=== PATIENT | female | born 1965 | race Caucasian/White ===

== ENCOUNTER 2018-08-27 09:37 | Day surgery (SDC) | payer MEDICARE ==
--- NOTE | 2018-08-27 06:51 | History and Physical - Ferro ---
CHIEF COMPLAINT/HISTORY OF CHIEF COMPLAINT: This patient presents with a history of an intractable lumbar radiculopathy. Due to the failure of therapy, a spinal stimulator trial was conducted on 07/29/18 with 75-80% pain control. Due to the failure of all therapies and the success of the trial, she presents today for implantation of a permanent system. PAST MEDICAL HISTORY: Chronic bronchitis, sleep apnea, reflux esophagitis, and degenerative arthritis. PAST SURGICAL HISTORY: Lumbar spinal surgery and knee surgery. MEDICATIONS ON ADMISSION: List to be provided. ALLERGIES: List to be provided. FAMILY/PSYCHOSOCIAL HISTORY: Social history - Social alcohol and caffeine. Family history - Thyroid disease, diabetes, hypertension and cancer. SYSTEMS REVIEW: The patient is appropriate in no acute distress. The remainder of the systems review is positive for glasses, headaches, depression, and difficulty sleeping. PHYSICAL EXAMINATION: Height is 5'5", weight is 250. No vital signs available. HEENT: Within normal limits. LUNGS: Clear. HEART: Regular rate and rhythm. ABDOMEN: Nontender. MUSCULOSKELETAL: Examination of the musculoskeletal system shows diffuse tenderness throughout the lumbar spine. Range of motion does produce pain throughout the low back and extending into the lower extremities. A laminectomy scar is identified mid to low lumbar. Motor and sensory field evaluation shows sensory and motor weakness bilateral lower extremities. Ambulation - No assistive device utilized. NEUROLOGIC: Cranial nerves are intact. IMPRESSION: POST LUMBAR LAMINECTOMY SYNDROME, ICD-10 CODE M96.1 WITH RADICULOPATHY, ICD-10 CODE M54.16 AND M54.17. PLAN: Due to the failure of conservative therapy, the patient is here for implantation of a permanent spinal cord stimulator. The procedure will be considered outpatient, although an overnight stay will be evaluated. JOB NUMBER: [id number] [facility]
[~2018-08-27 09:37] MED LIST: ACETAMINOPHEN 1,000 MG/100 ML BTL IV ONE; CEFAZOLIN 2 Gram 2 GM/50 ML BAG IVPB ONE; FAMOTIDINE 20MG TABLET PO ONE; MECLIZINE 25 MG TABLET PO ONE; METOCLOPRAMIDE 10 MG TABLET PO ONE
[2018-08-27] MEDS ORDERED: PROPOFOL 10 MG/ML VIAL IV ONE (09:38)
[2018-08-27] MEDS ORDERED: CEFAZOLIN 1G VIAL IM ONE (09:38)
[2018-08-27] MEDS ORDERED: KETAMINE HCL 100MG/1ML VIAL INJ ONE ×2 (09:38)
[2018-08-27] MEDS ORDERED: MIDAZOLAM HCL 2MG/2ML VIAL IV ONE (09:38)
[2018-08-27] MEDS ORDERED: BUPIVACAINE 0.5% W/EPI MPF 30 ML VIAL IVP ONE (09:38)
[2018-08-27] MEDS ORDERED: LIDOCAINE 1% W/EPI 1:200,000 MPF 30ML SQ ONE (09:38)
[2018-08-27] MEDS ORDERED: LIDOCAINE 2% MDV (20MG/ML) 20ML VIAL IV ONE (09:38)
[2018-08-27] MEDS ORDERED: FENTANYL PF 100MCG/2ML VIAL IV ONE (09:38)
[2018-08-27] MEDS ORDERED: HYDROMORPHONE HCL 2 MG/ML VIAL IV ONE (09:38)
--- NOTE | 2018-08-28 16:42 | Operative Note - Ferro ---
DATE OF SURGERY: 08/27/18 PREOPERATIVE DIAGNOSES: POST LUMBAR LAMINECTOMY SYNDROME, ICD-10 CODE = M96.1 WITH RADICULOPATHY, ICD- 10 CODE = M54.16 AND M54.17. OPERATION: 1. FLUOROSCOPICALLY-GUIDED EPIDURAL ACCESS LEFT T12/L1, PLACEMENT OF SPINAL CORD STIMULATOR LEAD 1, A [employer] INFINION 16 WITH 16 ELECTRODES POSITIONED LEFT T7. 2. 3. FLUOROSCOPICALLY-GUIDED EPIDURAL ACCESS LEFT L1/2, PLACEMENT OF SPINAL CORD STIMULATOR LEAD 2, A [employer] INFINION 16 WITH 16 ELECTRODES POSITIONED RIGHT T7. 3. COMPLEX PROGRAMMING LEAD 1 OVER 20 MINUTES FOLLOWED BY COMPLEX PROGRAMMING OF LEAD 2 OVER 20 MINUTES. 4. INCISION, SUBCUTANEOUS DISSECTION, AND ANCHORING OF LEAD 1 AND LEAD 2 TO SUPRASPINOUS FASCIA USING A [employer] LOCKING ANCHOR. 5. INCISION, SUBCUTANEOUS DISSECTION, AND CREATION OF SUBCUTANEOUS POUCH, RIGHT POSTERIOR GLUTEAL MARGIN FOR PLACEMENT OF GENERATOR IDENTIFIED [employer] PROGRAMMABLE RECHARGEABLE. 6. TUNNELING BETWEEN POUCHES. PLACEMENT OF EXTERNAL PORTION OF LEAD 1 AND LEAD 2 INTO GENERATOR POUCH. EACH LEAD INTERFACED TO GENERATOR. 7. PLACEMENT OF GENERATOR INTO POUCH. PLACEMENT OF LEADS INTO POUCH. CLOSURE OF BOTH INCISIONS USING STRATAFIX SUTURE 2-0 FASCIA, 3-0 SKIN. DERMABOND CLOSURE. 8. COMPLEX RECOVERY ROOM PROGRAMMING INTERNAL GENERATOR HOME USE, TWO STIMULATORS, 20 MINUTES. SURGEON: JAMES DUDLEY D.O. ANESTHESIA: LOCAL SEDATION. ANESTHESIA PROVIDER: LESLIE TAYLOR CRNA. INDICATION: This patient presents with a history of intractable post laminectomy radiculopathy. Due to the failure of therapy, a spinal cord stimulator trial was conducted in the office with 75 to 85% pain control. Due to the failure of all therapies and the success of the trial, the patient presents today for implantation of a permanent system. PROCEDURE: Intravenous line, vital sign monitoring, IV sedation, prepped and draped sterile technique. Under imaging, the epidural interspace at 08/28 and 09/29 were marked infiltrated. Using two standard needles with introducers, the space was accessed. There were a number of different penetration points used from 07/08, 08/09, and 08/28 bilateral unsuccessfully. The 08/28 and 09/29 were successful. Once the epidural space was accessed, spinal cord stimulator lead 1 , a [employer] Infinion 16 with 16 electrodes was advanced left of midline at T7. With the epidural access at the lower level 1/2, spinal cord stimulator lead 2, also a [employer] Infinion 16 with 16 electrodes was positioned right of midline at T7. Complex programming of lead 1 over 20 minutes followed by complex programming of lead 2 over 20 minutes resulted in complete patterns of stimulation across the back and into the legs; patient indicating we had all of the areas of the pain. She was given the option to implant, continue to program, or remove; she opted to implant. She was resedated. The skin above and below the needles was infiltrated, incision made, and subcutaneous dissection was conducted to the supraspinous fascia. The needles were removed then each lead was anchored to the supraspinous fascia with a [employer] Locking Yale. At the right posterior gluteal margin, site picked by the patient for the generator, skin infiltrated, incision made, and subcutaneous dissection was conducted to form a pouch of suitable size and depth for the generator, a [employer] Programmable Rechargeable WaveWriter. A tunneling tool was used to carry the leads into the generator pouch and each lead was interfaced to the generator. Antibiotic irrigation and Bovie for hemostasis. The generator was placed into the pouch, the leads were placed into their pouch, and then both incisions were closed using STRATAFIX suture 2-0 fascia, 3-0 skin. Dermabond closure. She was transported to the Recovery Room stable. No side-effects from the procedure or the sedation. When fully awake and alert, complex programming performed over 20 minutes re- establishing stimulation and pain control to all of the appropriate areas. She was instructed on the use of the system, provided with information, error messaging, and then prepared for discharge. DISCHARGE INSTRUCTIONS: 1. Sites remain clean and dry. No showering or bathing in any way although the Dermabond dressing will allow showering, she should not sit in water. No tubs. 2. Standard medications resumed including the antibiotic Levaquin. She will take 500 mg once a day for 14 days. 3. The office will contact the patient in the next 2-3 days to set up an appointment in 7-10 days to evaluate the sites. Until then, her activities should stay low; limit bend, lift, push, pull. All other instructions provided, numbers to contact, problems given, she was then discharged. cc: Belén Hannah N.P. JOB NUMBER: [id number] MTDD
--- NOTE | 2018-08-29 19:36 | RADIOLOGY REPORT ---
EXAM: SPINE, 1 VIEW HISTORY: PAIN PUMP PLACEMENT. TECHNIQUE: Single portable AP view of the lumbar spine was performed. FINDINGS: The stimulator lead tips are at the T6-7 level. IMPRESSION: STIMULATOR LEAD TIPS ARE AT THE T6-7 LEVEL. JOB NUMBER: [id number] MTDD
== END 2018-08-27 14:26 | disposition home or self-care (01) ==
LOC: SUR 09:37
PROVIDERS: ATTEND Pain Medicine Interventional Pain Medicine
DX: M96.1 Postlaminectomy syndrome, not elsewhere classified (principal); M54.16 Radiculopathy, lumbar region; M54.17 Radiculopathy, lumbosacral region; E03.9 Hypothyroidism, unspecified; G47.33 Obstructive sleep apnea (adult) (pediatric); E66.9 Obesity, unspecified
CPT/HCPCS: 72020; 95972; C1820; C1883; J0690; J3490

== ENCOUNTER 2019-07-20 07:22 | Day surgery (SDC) | payer MEDICARE ==
--- NOTE | 2019-07-13 06:50 | History and Physical - Ferro ---
CHIEF COMPLAINT/HISTORY OF CHIEF COMPLAINT: This patient presents with a history of a post lumbar laminectomy radiculopathy. Due to the failure of therapy a spinal cord stimulator trial was conducted with implant of the procedure and device noted. Although initially she achieved good pain control it has since failed to adequately and successfully control her pain. She is here for an implanted spinal catheter infusion trial of Hydromorphone to determine if the implantation of a permanent system can be of any value in pain control. PAST MEDICAL HISTORY: Chronic bronchitis, sleep apnea, reflux esophagitis, and degenerative arthritis. PAST SURGICAL HISTORY: Lumbar spinal surgery and knee surgery. MEDICATIONS ON ADMISSION: List to be provided. ALLERGIES: List to be provided. FAMILY/PSYCHOSOCIAL HISTORY: Social history - Social alcohol and caffeine. Family history - Thyroid disease, diabetes, hypertension, and cancer. SYSTEMS REVIEW: The patient is appropriate in no acute distress. The remainder of the systems review is positive for glasses, headaches, depression, and difficulty sleeping. PHYSICAL EXAMINATION: Height is 5'5", weight is 250. No vital signs. HEENT: Within normal limits. LUNGS: Clear. HEART: Rapid and regular. ABDOMEN: Nontender. MUSCULOSKELETAL: Examination of the musculoskeletal system shows diffuse tenderness lumbar spine. Range of motion does seem to produce pain across the back into the legs somewhat more right than left. There are mild motor and sensory abnormalities, right greater than left. Ambulation - Assistive device utilized. NEUROLOGIC: Cranial nerves are intact. IMPRESSION: POST LUMBAR LAMINECTOMY SYNDROME, ICD-10 CODE M96.1 WITH RADICULOPATHY, ICD-10 CODE M54.16 AND M54.17. PLAN: The patient is here for an implanted catheter infusion trial of Hydromorphone to determine if the implantation of a permanent system can be of any value in pain control. The procedure will be an overnight stay. An epidural blood patch will be performed which will require laying flat for four and slowly elevating for one. All of the potential risks, side effects, and complications have been carefully reviewed and discussed. JOB NUMBER: [id number] [facility]
--- NOTE | 2019-07-19 13:12 | History and Physical - Ferro ---
CHIEF COMPLAINT/HISTORY OF CHIEF COMPLAINT: This patient presents with a history of a post lumbar laminectomy radiculopathy. Due to the failure of therapies including a spinal cord stimulator implant the patient presents today for implanted spinal catheter infusion trial with Hydromorphone to determine if the implantation of a permanent system can be of any value in pain control. PAST MEDICAL HISTORY: Chronic bronchitis, sleep apnea, reflux esophagitis, and degenerative arthritis. PAST SURGICAL HISTORY: Lumbar spinal surgery and knee surgery. MEDICATIONS ON ADMISSION: List to be provided. No blood thinners. ALLERGIES: List to be provided. FAMILY/PSYCHOSOCIAL HISTORY: Social history - Social alcohol and caffeine. Family history - Thyroid disease, diabetes, hypertension and cancer. SYSTEMS REVIEW: The patient is appropriate in no acute distress. The remainder of the systems review is positive for glasses, headaches, depression, and difficulty sleeping. PHYSICAL EXAMINATION: Height is 5'5", weight is 250. No vital signs. HEENT: Within normal limits. LUNGS: Clear. HEART: Rapid and regular. ABDOMEN: Nontender. MUSCULOSKELETAL: Examination of the musculoskeletal system shows diffuse tenderness throughout the lumbar spine. Range of motion produces pain into both legs somewhat more right than left. There are mild motor and sensory abnormalities in both legs, right greater than left. Ambulation - No assistive device utilized. NEUROLOGIC: Cranial nerves are intact. IMPRESSION: POST LUMBAR LAMINECTOMY SYNDROME, ICD-10 CODE M96.1 WITH RADICULOPATHY, ICD-10 CODE M54.16 AND M54.17. PLAN: The patient is here for an implanted spinal catheter infusion trial of Hydromorphone to determine if the implantation of a permanent spinal infusion device would be of any value in superintendent container terminal pain control. The procedure will involve the incision and placement of spinal catheter. As a prophylactic measure against spinal headache an epidural blood patchy will be performed which requires her to lay flat for four, slowly elevated for one. She will stay overnight for observation and be discharged in the morning. The potential risks, side effects, and complications have all been reviewed and discussed in detail, information through the trimmer helper was provided and discussed, she was put in contact with a clinical administrative representative from [employer] who also answered her questions. JOB NUMBER: [id number] MTDD
[~2019-07-20 07:22] MED LIST changes: -ACETAMINOPHEN 1,000 MG/100 ML BTL IV ONE; +ACETAMINOPHEN 1,000 MG/100 ML BTL IVPB ONE; +HYDROMORPHONE PF 2MG/ML AMP 0.008 MG in 0.9 % SODIUM CHLORIDE 10ML VIA 0.996 ML IV ONE; +HYDROMORPHONE PF 2MG/ML AMP 8 MG in 0.9 % SODIUM CHLORIDE 500ML 496 ML IV ONE; -METOCLOPRAMIDE 10 MG TABLET PO ONE
[2019-07-20] MEDS ORDERED: PROPOFOL 10 MG/ML VIAL IV ONE (07:23)
[2019-07-20] MEDS ORDERED: MIDAZOLAM HCL 2MG/2ML VIAL IV ONE (07:23)
[2019-07-20] MEDS ORDERED: FENTANYL PF 100MCG/2ML VIAL IV ONE (07:23)
[2019-07-20] MEDS ORDERED: *PACU ONLY* KETAMINE HCL 10 MG/ML (20ML) VIAL IV ONE (07:23)
[2019-07-20] MEDS ORDERED: HYDROMORPHONE HCL 2 MG/ML VIAL IV ONE (07:23)
[2019-07-20] MEDS ORDERED: LIDOCAINE 2% MDV (20MG/ML) 20ML VIAL IV ONE (07:23)
[2019-07-20] MEDS ORDERED: MECLIZINE 25 MG TABLET PO ONE (07:42)
[2019-07-20] MEDS ORDERED: FAMOTIDINE 20MG TABLET PO ONE (07:42)
[2019-07-20] MEDS ORDERED: RINGERS SOLUTION,LACTATED 1,000 ML IV ONE (07:45)
[2019-07-20] MEDS ORDERED: ACETAMINOPHEN 1,000 MG/100 ML BTL IVPB ONE (07:46)
[2019-07-20] MEDS ORDERED: CEFAZOLIN 1 Gram 1 GM/50 ML BAG IVPB ONE (07:47)
[2019-07-20] MEDS ORDERED: CEFAZOLIN 2 Gram 2 GM/50 ML BAG IVPB SCH (08:00)
[2019-07-20] MEDS ORDERED: LIDOCAINE 1% W/EPI 1:100,000 MDV 20 ML VIAL SQ ONE (09:43)
[2019-07-20] MEDS ORDERED: CEFAZOLIN 1G VIAL IR ONE (09:44)
[2019-07-20] MEDS ORDERED: BUPIVACAINE 0.5% W/EPI MPF 30 ML VIAL SQ ONE (09:44)
[2019-07-20] MEDS ORDERED: CAFFEINE/SODIUM BENZOATE 250MG 500 MG in 0.9 % SODIUM CHLORIDE 100ML 100 ML IVPB ONE ×2 (10:22→10:23)
--- NOTE | 2019-07-20 10:51 | Operative Note - Ferro ---
DATE OF SURGERY: 07/20/2019 PREOPERATIVE DIAGNOSIS: LUMBAR RADICULOPATHY, ICD-10 CODE M54.16 AND M54.17, POST LAMINECTOMY SYNDROME, ICD-10 CODE M96.1. OPERATION: 1. FLUOROSCOPICALLY GUIDED ACCESS SPINAL SPACE AT L3-L4, PLACEMENT OF THIN WALLED SPINAL CATHETER T11-T12. 2. DIAGNOSTIC MYELOGRAPHY WITH RADIOLOGIC SUPERVISION AND INTERPRETATION. 3. SPINAL OPIOID BOLUS HYDROMORPHONE 0.006 MG SPINAL SPACE. 4. INCISION, SUBCUTANEOUS DISSECTION, AND ANCHORING OF SPINAL CATHETER TO THE SUPRASPINOUS FASCIA WITH A [employer] ANCHOR AND NONABSORBABLE SUTURE. 5. INCISION, SUBCUTANEOUS DISSECTION, CREATION OF SUBCUTANEOUS POUCH AT LEFT POSTERIOR GLUTEAL MARGIN. 6. TUNNELLING BETWEEN MIDLINE POUCH INTO POSTERIOR POUCH EXTENDING SPINAL CATHETER INTO POUCH. 7. INTERFACE SPINAL CATHETER INDWELLING WITH SECOND CATHETER COMPONENT BY WAY OF A CONNECTOR. 8. TUNNELLING SECONDARY CATHETER 6 CM SUPERIOR SUBCUTANEOUS FROM POSTERIOR GLUTEAL POUCH EXITING SKIN, INTERFACE EXTERNAL CATHETER TO EXTERNAL PUMP SET TO DELIVER HYDROMORPHONE AT 0.16 MG A DAY. 9. CLOSURE OF MIDLINE INCISION USING VICRYL FOR FASCIA AND ANGEL FOR SKIN, CLOSURE OF LEFT POSTERIOR GLUTEAL POUCH USING RUNNING NYLON. 10. DRESSINGS PLACED, SECURING CATHETER ALL CONNECT UNDER STERILE DRESSING. 11. NO EPIDURAL BLOOD PATCH BECAUSE OF MULTIPLE LEVEL SPINAL SURGERY. PATIENT TRANSPORTED TO THE RECOVERY ROOM STABLE FLAT. SURGEON: Ren Hassan D.O. ANESTHESIA: Local sedation. ANESTHESIA PROVIDER: Dallas Boogie CRNA INDICATION: This patient presents with a history of multiple level fusion lumbar spine and chronic intractable pain which is back and leg. Due to the failure of therapy, she is here for an implanted spinal catheter infusion trial using Hydromorphone to determine if the implantation of a permanent system can be of any value in pain control. PROCEDURE: Intravenous line, vital sign monitoring, IV sedation. Prepped and draped, sterile technique, patient positioned prone. Sterile prep, sterile technique. The spinal interspace at L2-L3 could not be identified because of extensive arthritic change. At L3-L4 level junction with the multiple level fusion, and laminectomy, infiltrated with local, a 20-gauge spinal needle, long axis paramedian approach using AP and lateral imaging was placed into the spinal space. The needle was accessed into the spinal space on lateral imaging. With CSF flow a thin walled spinal catheter was advanced and positioned midline under imaging at T11-T12. There was no response on the part of the patient, no unusual pain patterns or response from the placement. Diagnostic myelography was performed, the flow characteristics were appropriate for the space, confirming catheter position straight and linear. A bolus of Hydromorphone at 0.06 mg was given into the spinal space. The catheter was clamped to stop CSF leak. The skin above and below the needle was infiltrated and subcutaneous dissection was conducted to the supraspinous fascia. The needle was removed and the anchor was secured to the supraspinous fascia with a ngmocotronic anchor and nonabsorbable suture. At the left posterior gluteal margin, a site picked by the patient for the pump, skin infiltrated, incision made and subcutaneous dissection was conducted to form a small superficial pouch. The midline spinal catheter was then tunnelled into this pouch and in the pouch interfaced with the second catheter component by way of a connector. the second catheter component was then tunnelled 6 cm superior from the posterior gluteal pouch exiting the skin. This external catheter was then interfaced to an external pump which was set to deliver Hydromorphone at 0.16 mg a day. The midline incision was closed using Vicryl for fascia, and stales for the skin. The left posterior pouch was closed using a running nylon. There was no epidural blood patchy possible since we had accessed the space immediately above the laminectomy infusion which allowed no availability for the blood patch. The catheter was then secured using appropriate 4x4's and dressing securing the catheter, all connections are under the sterile dressing. Medipore tape was placed. The external pump was running 0.16 mg a day. She was stable. She was then turned with all of the dressing in place supine, pillow under head and knees and transported to the Recovery Room stable. No side effects from the procedure. A caffeine infusion will be started in Recovery and will be repeated on the floor. She will be kept flat for four hours and slowly elevated for one and kept overnight for observation. All other instructions were provided, the numbers to contact if problems given. She will be discharged in the morning. DISCHARGE INSTRUCTIONS: 1. The sites are to remain clean and dry, no showering or bathing in any way that would disrupt the dressings. If it happens contact the clinic. 2. Standard mediations resumed including antibiotic Levaquin, she will take 500 mg once a day for fourteen days. 3. We will see the patient in the office in the next 2-3 days for her first increase in the spinal infusion. Over the two week trial we will set up three possible increases. At the end of the trial period, we will either remove the implanted catheter or implant the pump interfacing it to the implanted catheter. All instructions were given and numbers to contact if problems given. 4. Spinal opioid side effects, respiratory depression, nausea, vomiting, constipation, urinary retention, and rash were discussed and reviewed. If they happen contact the clinic or go to the local Emergency Room. All other instructions were provided, numbers to contact if problems given. She will be seen in the office. She will be discharged in the morning. cc: Dr. Nettie Tejada and Belén Hannah N.P. JOB NUMBER: [id number] MTDD
[2019-07-20] MEDS ORDERED: OXYCODONE/APAP 10MG-325MG TABLET PO PRN ×2 (13:00)
[2019-07-20] MEDS ORDERED: METOCLOPRAMIDE 10 MG TABLET PO PRN (13:00)
[2019-07-20] MEDS ORDERED: AL HYDROX/MAG HYDROX 30ML UD PO PRN (13:00)
[2019-07-20] MEDS ORDERED: METOCLOPRAMIDE HCL 10 MG/2 ML VIAL IVP PRN (13:00)
[2019-07-20] MEDS ORDERED: DIPHENHYDRAMINE HCL 25 MG CAPSULE PO PRN ×2 (13:00)
[2019-07-20] MEDS ORDERED: HYDROMORPHONE HCL 2 MG/ML VIAL IM PRN ×2 (13:00)
[2019-07-20] MEDS ORDERED: NALOXONE 0.4 MG/1 ML VIAL IVP PRN (13:00)
[2019-07-20] MEDS ORDERED: DIPHENHYDRAMINE HCL 50 MG/ML VIAL IVP PRN ×2 (13:00)
[2019-07-20] MEDS ORDERED: HYDROCODONE/APAP 7.5/325MG TABLET PO PRN (13:00)
[2019-07-20] MEDS ORDERED: ACETAMINOPHEN 325 MG TAB PO PRN (13:00)
[2019-07-20] MEDS ORDERED: SENNOSIDES/DOCUSATE SODIUM UD CAPSULE PO PRN ×2 (13:00)
[2019-07-20] MEDS ORDERED: TEMAZEPAM 15 MG CAPSULE PO PRN (13:00)
[2019-07-20] MEDS: RINGERS SOLUTION,LACTATED 1,000 ML IV SCH ×2 (13:27→15:54)
[2019-07-20] MEDS ORDERED: CAFFEINE/SODIUM BENZOATE 250MG 500 MG in 0.9 % SODIUM CHLORIDE 100ML 100 ML IVP ONE (16:00)
[2019-07-20] MEDS ORDERED: ONDANSETRON HCL IV 4 MG/2 ML VIAL IVP PRN (16:30)
[2019-07-20] MEDS: CEFAZOLIN 2 Gram 2 GM/50 ML BAG IVPB SCH (18:16)
[2019-07-20] MEDS: HYDROCODONE/APAP 7.5/325MG TABLET PO PRN (20:41)
[2019-07-21] MEDS: CEFAZOLIN 2 Gram 2 GM/50 ML BAG IVPB SCH ×2 (01:36→08:28)
[2019-07-21] MEDS: RINGERS SOLUTION,LACTATED 1,000 ML IV SCH ×2 (03:14→06:15)
[2019-07-21] MEDS ORDERED: LEVOTHYROXINE SODIUM 75 MCG TABLET PO SCH (07:00)
[2019-07-21] MEDS: HYDROCODONE/APAP 7.5/325MG TABLET PO PRN ×2 (08:29→10:57)
[2019-07-21] MEDS ORDERED: FLUOXETINE HCL 20 MG CAPSULE PO SCH (10:00)
--- NOTE | 2019-07-22 16:21 | RADIOLOGY REPORT ---
EXAMINATION: Thoracolumbar Spine Single View EXAM DATE: 07/20/2019 12:07 PM TECHNIQUE: Frontal view INDICATION: S/P PAIN PUMP TRIAL COMPARISON: None ENCOUNTER: Initial IMPRESSION: Single frontal view of the level of the thoracolumbar spine. Spinal stimulator lead tips terminate at the level of the midthoracic spine. Right lower abdomen battery pack is present. Partially imaged lo wer lumbar spine/sacrum posterior fusion hardware is present. Midline soft tissue surgical clips are seen. Dictated by: Rima Duarte DO on 07/22/2019 4:10 PM. .
== END 2019-07-21 13:08 | disposition home or self-care (01) ==
LOC: SUR 07:22 → MEDSURG 11:12 → SUR 07-21 13:08
PROVIDERS: ATTEND Pain Medicine Interventional Pain Medicine
DX: M54.16 Radiculopathy, lumbar region (principal); M54.17 Radiculopathy, lumbosacral region; M96.1 Postlaminectomy syndrome, not elsewhere classified; E03.9 Hypothyroidism, unspecified; G47.33 Obstructive sleep apnea (adult) (pediatric); F17.210 Nicotine dependence, cigarettes, uncomplicated
CPT/HCPCS: 36416; 72020; 82948; 94760; J0690; J1170; J3490; J7040; J7120

== ENCOUNTER 2019-08-03 12:46 | Day surgery (SDC) | payer MEDICARE ==
--- NOTE | 2019-08-03 07:56 | History and Physical - Ferro ---
CHIEF COMPLAINT/HISTORY OF CHIEF COMPLAINT: This patient with an ongoing implanted spinal catheter infusion trial of Hydromorphone is here for a permanent implant with 75% relief from the implanted catheter trial. PAST MEDICAL HISTORY: Chronic bronchitis, sleep apnea, reflux, and degenerative arthritis. PAST SURGICAL HISTORY: Lumbar spinal surgery and knee surgery. MEDICATIONS ON ADMISSION: List to be provided. ALLERGIES: List to be provided. FAMILY/PSYCHOSOCIAL HISTORY: Social history - Social alcohol and caffeine. Family history - Thyroid disease, diabetes, hypertension, and cancer. SYSTEMS REVIEW: The patient is appropriate in no acute distress. The remainder of the systems review is positive for glasses, headaches, depression, and difficulty sleeping. PHYSICAL EXAMINATION: Height is 5'5", weight is 250. No vital signs. HEENT: Within normal limits. LUNGS: Clear. HEART: Rapid and regular. ABDOMEN: Nontender. MUSCULOSKELETAL: Examination of the musculoskeletal system shows the dressings for the implanted catheter trial to be intact. External pump is in place. Lower extremity functionality shows the underlying pain pattern into the low back and bilateral legs. Ambulation - No assistive device utilized. NEUROLOGIC: Cranial nerves are intact. 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 PLAN: Due to the failure of all therapy and the success of the implanted catheter trial, the patient presents today for implantation of a permanent system. The procedure will be outpatient, although an overnight stay will be evaluated. The external dressing will be removed, the external catheter will be removed and the pump implanted into the posterior gluteal margin and flank and interfacing of the indwelling catheter. The risks, side effects and complications have been reviewed. JOB NUMBER: [id number] MTDD
[~2019-08-03 12:46] MED LIST changes: +CEFAZOLIN 1 Gram 1 GM/50 ML BAG IVPB ONE; +HYDROMORPHONE HCL 0.04 GM in 0.9 % SODIUM CHLORIDE 10ML VIA 20 ML IV ONE; -HYDROMORPHONE PF 2MG/ML AMP 8 MG in 0.9 % SODIUM CHLORIDE 500ML 496 ML IV ONE; +METOCLOPRAMIDE 10 MG TABLET PO ONE
[2019-08-03] MEDS ORDERED: GLYCOPYRROLATE 0.2 MG/ML ML IV ONE (12:47)
[2019-08-03] MEDS ORDERED: PROPOFOL 10 MG/ML VIAL IV ONE (12:47)
[2019-08-03] MEDS ORDERED: LIDOCAINE 2% MDV (20MG/ML) 20ML VIAL IV ONE (12:47)
[2019-08-03] MEDS ORDERED: *PACU ONLY* KETAMINE HCL 10 MG/ML (20ML) VIAL IV ONE (12:47)
[2019-08-03] MEDS ORDERED: MIDAZOLAM HCL 2MG/2ML VIAL IV ONE (12:47)
[2019-08-03] MEDS ORDERED: RINGERS SOLUTION,LACTATED 1,000 ML IV ONE ×2 (14:12)
[2019-08-03] MEDS ORDERED: CEFAZOLIN 1G VIAL IR ONE (15:27)
[2019-08-03] MEDS ORDERED: BUPIVACAINE 0.5% W/EPI MPF 30 ML VIAL SQ ONE ×2 (15:32)
[2019-08-03] MEDS ORDERED: LIDOCAINE 1% W/EPI 1:200,000 MPF 30ML SQ ONE ×2 (15:32)
[2019-08-03] MEDS ORDERED: HYDROCODONE/APAP 7.5/325MG TABLET PO ONE (16:16)
--- NOTE | 2019-08-04 09:34 | Operative Note - [place] ---
DATE OF SURGERY: 08/03/2019 PREOPERATIVE DIAGNOSIS: 1. POST LUMBAR LAMINECTOMY SYNDROME WITH RADICULOPATHY. 2. IMPLANTED SPINAL CATHETER INFUSION TRIAL HYDROMORPHONE. OPERATION: 1. FLUOROSCOPICALLY GUIDED INCISION, SUBCUTANEOUS DISSECTION, AND REMOVAL OF EXTERNALIZED CATHETER. 2. INCISION, SUBCUTANEOUS DISSECTION, AND CREATION OF SUBCUTANEOUS POUCH LEFT POSTERIOR GLUTEAL MARGIN, PLACEMENT OF PUMP IDENTIFIED A MEDTRONIC 20 ML PROGRAMMABLE. 3. RESECTION AND REVISION OF INTERNAL CATHETER, INTERFACED CATHETER WITH SECOND CATHETER COMPONENT BY WAY OF CONNECTOR. 4. PLACEMENT OF 20 ML PROGRAMMABLE PUMP PREFILLED HYDROMORPHONE 10 MG PER ML ONTO FIELD, INTERFACED WITH REVISED CATHETER. 5. PLACEMENT INTO FORMED PUMP POUCH LEFT POSTERIOR GLUTEAL MARGIN, SECURING PUMP TO POSTERIOR FASCIA WITH NONABSORBABLE SUTURE THREE POINTS PUMP EYELETS. 6. PLACEMENT OF CURVED 24-GAUGE HUMBER NEEDLE TO ACCESS PORT PROGRAMMABLE PUMP ASPIRATION CLEARED 1 ML OF CATHETER CONTENTS CLEARING CATHETER OF OPIOID AND CSF MIXTURE. 7. DIAGNOSTIC MYELOGRAPHY WITH RADIOLOGIC SUPERVISION AND INTERPRETATION THROUGH ACCESS PORT CONFIRMING FUNCTIONALITY. 8. CLOSURE OF INCISION USING STRATAFIX SUTURE 2-0 FASCIA AND 3-0 SKIN. DERMABOND CLOSURE. 9. PROGRAMMING OF PUMP TO DELIVER BY CONTINUOUS INFUSION HYDROMORPHONE AT 0.65 MG A DAY. SURGEON: Ren Hassan D.O. ANESTHESIA: Local sedation. ANESTHESIA PROVIDER: Heavenly Singer CRNA INDICATION: This patient presents with a history of an intractable post lumbar laminectomy radiculopathy. Due to the failure of all therapies and the success of an implanted spinal catheter infusion trial with Hydromorphone, she is here for implantation of a permanent system. PROCEDURE: Intravenous line, vital sign monitoring, IV sedation, prepped and draped, sterile technique. The patient is positioned prone. Sterile prep, sterile technique. The external dressing is removed, the external pump was removed, sterile prep, sterile technique. At the left posterior gluteal margin the site for the previous externalized catheter, skin infiltrated, incision made, and subcutaneous dissection was conducted to the interface between internal and external catheter. This interface was clamped and then cut. The external catheter was removed by pulling away from the incision. The incision was then widened to accommodate a 20 ml programmable Medtronic pump. Antibiotic irrigation, Bovie for hemostasis. A second catheter component was placed onto the field and interfaced with the indwelling catheter, the revised catheter would interface with the pump. This catheter revision was accomplished by way of a catheter component and connector. A 20 ml programmable Medtronic pump prefilled Hydromorphone 10 mg per ml was placed onto the field. The revised catheter was then interfaced to the programmable pump. Antibiotic irrigation, Bovie for hemostasis of the pouch. The pump was placed into the pouch, secured to the posterior fascia with nonabsorbable suture at three points pump eyelets. With the pump in the pouch a curved 24-gauge Fernandez needle was inserted into the access port, 1 ml of catheter contents was aspirated, cleaning catheter of opioid and CSF mixture. Diagnostic myelography was then performed through the access port, the resulting flow characteristics confirmed full functionality of the catheter, pump connection and showed myelogram characteristics appropriate for the space. The incision was then closed using Stratafix suture 2-0 fascia and 3-0 skin. Dermabond closure. The pump was programmed to deliver by continuous infusion of Hydromorphone at 0.65 mg a day. With the Dermabond dressing in place she was transported to the Recovery Room stable. No side effects from the procedure or sedation. She is fully awake and alert. She is prepared for discharge. DISCHARGE INSTRUCTIONS: 1. The sites are to remain clean and dry. No showering or bathing in any way that would disrupt dressings. If it happens contact the clinic. The Dermabond will allow showering, she cannot sit in watery. 2. Standard medications resumed. She will continue the Levaquin 500 mg once a day for the next 7-10 days or until she comes in for the site check, at that point it will discontinued. 3. Spinal opioid side effects, respiratory depression, nausea, vomiting, constipation, urinary retention, cellulitis, or rash have all been discussed and reviewed. All other instructions are provided. She is prepared for discharge. Call if there are any problems. We will see her in 7-10 days. JOB NUMBER: [id number] MTDD
== END 2019-08-03 16:29 | disposition home or self-care (01) ==
LOC: SUR 12:46
PROVIDERS: ATTEND Pain Medicine Interventional Pain Medicine
DX: M96.1 Postlaminectomy syndrome, not elsewhere classified (principal); E03.9 Hypothyroidism, unspecified; E66.9 Obesity, unspecified; G47.33 Obstructive sleep apnea (adult) (pediatric)
CPT/HCPCS: 62367; C1755; C1776; J0690; J7120